=== PATIENT | male | born 1970 | race Hispanic/Latino ===

== ENCOUNTER 2022-04-05 07:21 | Day surgery (SDC) | payer MEDICAID, OTHER ==
[2022-04-03 11:33] LABS: BASOPHILS % (AUTO) 0.5 % (0.0-5.0); EOSINOPHILS % (AUTO) 1.3 % (0.0-8.0); HEMATOCRIT 42.9 % (42-54); LYMPHOCYTES % (AUTO) 26.3 % (21.0-51.0); MEAN CORPUSCULAR HEMOGLOBIN 31.1 pg (27.0-33.0); MEAN CORPUSCULAR HGB CONC 35.2 g/dL (32.0-36.0); MEAN CORPUSCULAR VOLUME 88.5 fL (79-99); MONOCYTES % (AUTO) 4.4 % (3.0-13.0); NEUTROPHILS % (AUTO) 67.1 % (40.0-77.0); PLATELET COUNT (AUTO) 156 K/uL (130-400); RED BLOOD CELL COUNT(AUTO) 4.85 MIL/uL (4.50-6.20); RED CELL DISTRIBUTION WIDTH 12.8 % (11.0-15.5); WHITE BLOOD COUNT (AUTO) 5.5 K/uL (4.8-10.8)
[2022-04-03 11:49] LABS: INR 0.97 (0.85-1.15); PROTHROMBIN TIME 10.6 SEC (9.6-11.6)
[2022-04-03 11:50] LABS: CREATININE 0.9 mg/dL (0.5-1.5); PARTIAL THROMBOPLASTIN TIME 25.7 SEC (26.3-35.5); POTASSIUM 4.3 mmol/L (3.5-5.1)
[2022-04-04 10:08] VITALS: BP 134/75
[2022-04-05] VITALS (18 sets, daily range): BP systolic 104–139; BP diastolic 55–87
[~2022-04-05] VITALS: Ht 177.8 cm; Wt 89.0 kg
[~2022-04-05 07:21] MED LIST: ATOR20TA65 PO; BACITRACIN 28.4 GM OINT TP ONE; BUPIVACAINE/PF 0.25% 30ML VIAL IJ ONE; CEFAZOLIN SODIUM 1 GM VIAL IVP SCH; EMPA10TA PO; LOSA25TA41 PO; METF-444 PO
[2022-04-05] MEDS ORDERED: 0.9%NACL 1000ML 1,000 ML IV ONE (07:56)
[2022-04-05] MEDS ORDERED: MIDAZOLAM HCL 1 MG/ML 2ML VIAL ONE (08:40)
[2022-04-05] MEDS ORDERED: PROPOFOL 10 MG/ML 20ML VIAL IV ONE (08:40)
[2022-04-05] MEDS ORDERED: LIDOCAINE PF 100MG/5ML (2%) SYRINGE 5ML ONE (08:40)
[2022-04-05] MEDS ORDERED: CEFAZOLIN SODIUM 2 GM VIAL IVP ONE (08:41)
[2022-04-05] MEDS ORDERED: FENTANYL CITRATE PF 50 MCG/1 ML 2ML VIAL ONE ×2 (08:41→09:05)
[2022-04-05] MEDS ORDERED: EPHEDRINE SULFATE 50 MG/ML AMPULE ONE (08:48)
[2022-04-05] MEDS ORDERED: ONDANSETRON 4MG INJ ONE (09:37)
[2022-04-05] MEDS ORDERED: BACITRACIN 1 EACH PACKET TP ONE (11:12)
== END 2022-04-05 11:25 | disposition home or self-care (01) ==
LOC: DAH 07:21
PROVIDERS: ATTEND Urology
DX: N47.1 Phimosis (principal); I10 Essential (primary) hypertension; E78.5 Hyperlipidemia, unspecified; E11.9 Type 2 diabetes mellitus without complications; Z79.01 Long term (current) use of anticoagulants; Z79.899 Other long term (current) drug therapy; Z79.84 Long term (current) use of oral hypoglycemic drugs
CPT/HCPCS: 80048; 85025; 85610; 85730; 87426; 36415; 71045; 93005; 54161; 82948 ×2; A6260; A4663; A4606; J3010 ×2; J7030; J3490 ×3; J2250; J2405; A4215; A4223; A4222; A4221; S0020; A4600; J0690; J2001; J2704